=== PATIENT | female | born 1935 | race Caucasian/White ===

== ENCOUNTER → 2018-04-19 | Outpatient (CLI) | payer MEDICARE, OTHER | END | disposition home or self-care (01) | LOC: PCVCCLINIC 14:51 | PROVIDERS: ATTEND Internal Medicine Cardiovascular Disease | DX: I25.10 Atherosclerotic heart disease of native coronary artery without angina pectoris (principal); I48.91 Unspecified atrial fibrillation; J44.9 Chronic obstructive pulmonary disease, unspecified; E78.00 Pure hypercholesterolemia, unspecified; I10 Essential (primary) hypertension | CPT/HCPCS: 80061; 93005; 93280 ==

== ENCOUNTER → 2018-04-26 | Outpatient (CLI) | payer MEDICARE, OTHER ==
--- NOTE | 2018-04-26 14:31 | PCVCIMAG ---
EXAM: BILATERAL SUPERFICIAL VENOUS DUPLEX INDICATION: Leg pain and swelling. FINDINGS: Right leg: No thrombus in the common femoral, main femoral, or popliteal veins. These veins are compressible. Right Great Saphenous Vein: At the saphenofemoral junction the diameter is 4.6 mm, in the mid thigh it is absent, and in the calf it is 5.6 mm. There is significant venous insufficiency/reflux only at the level of the calf. Venous insufficiency/reflux duration is 3.6 seconds. Right Small Saphenous Vein: At the saphenopopliteal junction the diameter is 3.1 mm, and in the calf it is 3.3 mm. There is not significant venous insufficiency/reflux throughout. Venous insufficiency/reflux duration is 0 seconds. There is a cranial extension present. Left leg: No thrombus in the common femoral, main femoral, or popliteal veins. These veins are compressible. Left Great Saphenous Vein: At the saphenofemoral junction the diameter is 6.5 mm, in the mid thigh it is 4.8 mm, and in the calf it is 3.8 mm. There is significant venous insufficiency/reflux throughout. Venous insufficiency/reflux duration is 2.8 seconds. Left Small Saphenous Vein: At the saphenopopliteal junction the diameter is 3.5 mm, and in the calf it is 2.8 mm. There is not significant venous insufficiency/reflux throughout. Venous insufficiency/reflux duration is 0 seconds. There is not a cranial extension present. IMPRESSION: Right Great Saphenous Vein: Significant venous insufficiency/reflux is present only at the level of the calf. The vein throughout the level of the thigh is not visualized consistent with prior ablation procedure.. Right Small Saphenous Vein: No significant venous insufficiency/reflux is present as noted above. Left Great Saphenous Vein: Significant venous insufficiency/reflux is present as noted above. Note is made the vein is diminutive in size. Left Small Saphenous Vein: No significant venous insufficiency/reflux is present as noted above. LOC:[id number]
--- NOTE | 2018-04-26 17:06 | PCVCIMAG ---
APPROVED REPORT Study performed: 04/26/2018 12:13:13 EXAM: Comprehensive 2D, Doppler, and color-flow Echocardiogram Patient Location: Echo lab Status: routine BSA: 1.58 HR: 60 bpmBP: 140/60 mmHg Rhythm: Pacemaker Other Information Study Quality: Adequate Indications COPD Atrial Fibrillation Pacemaker CAD 2D Dimensions LVEF(%): 49.27 (>50%) IVSd: 9.60 (7-11mm)LVOT Diam: 19.76 (18-24mm) LVDd: 46.04 mm PWd: 9.69 (7-11mm)Ascending Ao: 32.48 (22-36mm) LVDs: 34.60 (25-40mm) Left Atrium: 40.85 (27-40mm) Aortic Root: 30.07 mm LV Single Plane 4CH: 52.88 % LV Single Plane 2CH: 58.64 %Hubbard's LVEF: 55.76 % Biplane EF: 56.8 % Volumes Left Atrial Volume (Systole) Single Plane 4CH: 48.80 mLSingle Plane 2CH: 62.38 mL LA ESV Index: 39.00 mL/m2 Aortic Valve AoV Peak Felix.: 1.72 m/s AO Peak Gr.: 11.89 mmHgLVOT Max P.43 mmHg LVOT Max V: 0.93 m/s MAXINE Vmax: 1.65 cm2 AI Vmax: 3.74 m/s AI [place]: 2.60 m/s2 AI PHT: 417.00 ms Mitral Valve E/A Ratio: 1.5 MV Decel. Time: 218.49 ms MV E Max Felix.: 0.78 m/s MV A Felix.: 0.53 m/s MV PHT: 63.36 ms IVRT: 124.57 ms Pulmonary Valve PV Peak Felix.: 1.06 m/sPV Peak Gr.: 4.52 mmHg Pulmonary Vein P Vein S: 0.36 m/sP Vein A: 0.27 m/s P Vein D: 0.57 m/sP Vein A Dur.: 128.0 msec P Vein S/D Ratio: 0.63 Tricuspid Valve TR Peak Felix.: 2.96 m/s TR Peak Gr.: 35.13 mmHg Left Ventricle The left ventricle is normal size. There is normal LV segmental wall motion. There is normal left ventricular wall thickness. Left ventricular systolic function is normal. The left ventricular ejection fraction is within the normal range. LVEF is 55-60%. The left ventricular diastolic function is normal. Right Ventricle The right ventricle is normal size. The right ventricular systolic function is normal. Pacemaker lead is present in the right ventricle. Atria Left atrium is mildly dilated. Right atrium is mildly dilated. Pacemaker lead is present in the right atrium. Aortic Valve The aortic valve is moderately calcified. Mild aortic regurgitation. There is no aortic valvular stenosis. Mitral Valve Anterior leaflet prolapse with mild-moderate regurgitation. Mild to moderate mitral regurgitation. No evidence of mitral valve stenosis. Tricuspid Valve The tricuspid valve is normal in structure. There is no tricuspid valve regurgitation noted. Pulmonic Valve The pulmonary valve is normal in structure. There is no pulmonic valvular regurgitation. Great Vessels The aortic root is normal in size. IVC is normal in size and collapses with >50% inspiration Pericardium There is no pericardial effusion. There is no pleural effusion. <Conclusion> The left ventricle is normal size. LVEF is 55-60%. The left ventricular diastolic function is normal. The right ventricular systolic function is normal. Left atrium is mildly dilated. Right atrium is mildly dilated. Pacemaker lead is present in the right atrium. The aortic valve is moderately calcified. Mild aortic regurgitation. Anterior leaflet prolapse with mild-moderate regurgitation. Mild to moderate mitral regurgitation. There is no tricuspid valve regurgitation noted. The aortic root is normal in size. There is no pericardial effusion.
== END | disposition home or self-care (01) ==
LOC: PCVCIMAG 13:16
PROVIDERS: ATTEND Internal Medicine Cardiovascular Disease
DX: R60.0 Localized edema (principal); M79.89 Other specified soft tissue disorders
CPT/HCPCS: 93306; 93970

== ENCOUNTER → 2018-05-17 | Outpatient (CLI) | payer MEDICARE, OTHER | END | disposition home or self-care (01) | LOC: PCVCCLINIC 14:18 | PROVIDERS: ATTEND Nuclear Medicine Nuclear Cardiology | DX: I87.2 Venous insufficiency (chronic) (peripheral) (principal); I48.0 Paroxysmal atrial fibrillation; I11.0 Hypertensive heart disease with heart failure; I50.30 Unspecified diastolic (congestive) heart failure; I25.10 Atherosclerotic heart disease of native coronary artery without angina pectoris; J44.9 Chronic obstructive pulmonary disease, unspecified; Z87.891 Personal history of nicotine dependence; Z72.89 Other problems related to lifestyle; Z79.82 Long term (current) use of aspirin | CPT/HCPCS: 93005; G0463 ==

== ENCOUNTER → 2018-05-23 | Outpatient (CLI) | payer MEDICARE, OTHER ==
[~2018-05-23] MED LIST: CLOPIDOGREL BISULFATE 75 MG TABLET ONE; DIAZEPAM 10 MG TABLET. ONE; HEPARIN SODIUM 5,000 UNIT/ML VIAL for PCVC. ONE; IOHEXOL 300 MG/ML 100ML VIAL. ONE; IV NORMAL SALINE 500ML BAG 500 ML ONE; LIDOCAINE 1% Multi-Dose 50 ML VIAL. ONE; MIDAZOLAM HCL/PF 2 MG/2 ML VIAL. ONE; VANCOMYCIN 1GM IVPB FOR OMNI 250 ML ONE; fentaNYL PF VIAL 100 MCG/2 ML VIAL ONE
--- NOTE | 2018-05-23 16:36 | PCVCINTER ---
EXAM: 1. INTRAVASCULAR ULTRASOUND OF THE INFERIOR VENA CAVA 2. INTRAVASCULAR ULTRASOUND OF THE RIGHT COMMON AND EXTERNAL ILIAC AND COMMON FEMORAL VEINS 3. INTRAVASCULAR ULTRASOUND OF THE LEFT COMMON AND EXTERNAL ILIAC AND COMMON FEMORAL VEINS 4. INFERIOR VENA CAVA AND BILATERAL ILIOFEMORAL VENOGRAPHY 5. LEFT EXTERNAL ILIAC VEIN STENT PLACEMENT INDICATION: Iliofemoral venous obstruction. Chronic Venous Insufficiency Class 4a. Leg pain and swelling. Failed conservative therapy including medical grade compression stockings for at least 3 months. Venous hypertension chronic. PROCEDURE: Procedure and risks of IVC and ileofemoral venography and intravascular ultrasound, and venous stent placement as appropriate including bleeding, infection, venous thrombosis, stent migration/thrombosis, contrast-induced nephropathy requiring dialysis, stroke, and were discussed with the patient and consent obtained. Patient was given IV antibiotics. The patient's right neck and chest was prepped and draped in the normal sterile fashion. IV conscious sedation was used throughout the procedure with appropriate monitoring. Ultrasound was used to interrogate the neck and showed the internal jugular vein to be patent. A spot ultrasound image of the internal jugular vein was saved. Under ultrasound guidance access into the right internal jugular vein was obtained and an 8F sheath was placed to the level of the lower IVC. Catheter was placed into the lower IVC and IVC cavogram performed. Catheter was placed to the level of the right common femoral vein and right iliofemoral venogram obtained. Catheter was placed to the level of the left common femoral vein and left iliofemoral venogram was obtained. The 8 [place] intravascular ultrasound catheter was then placed to the level of the right common femoral vein and intravascular ultrasound evaluation of the right common femoral, right external iliac, and right common iliac veins was accomplished in a pull-back fashion. The 8 [place] intravascular ultrasound catheter was then placed to the level of the left common femoral vein and intravascular ultrasound evaluation of the left common femoral, left external iliac, and left common iliac veins was accomplished in a pull-back fashion. Intravascular ultrasound evaluation of the inferior vena cava was then accomplished in a pullback fashion. Stent placement across the area of high-grade extrinsic compression mid left external iliac vein was performed with a 14 x 60 Smart control stent with subsequent dilatation to 12.0 mm. Follow-up venography and intravascular ultrasound of the left iliac veins was accomplished. Sheath was removed and hemostasis obtained using manual pressure. FINDINGS: IVC INTRAVASCULAR ULTRASOUND: Normal vessel: 11.3 x 18.3 mm. Area = 157.5 sq. mm. RIGHT COMMON ILIAC VEIN INTRAVASCULAR ULTRASOUND: Normal vessel: 9.3 x 10.9 mm. Area = 78.5 sq. mm. RIGHT EXTERNAL ILIAC VEIN INTRAVASCULAR ULTRASOUND: Normal vessel: 6.9 x 9.1 mm. Area = 51.4 sq. mm. RIGHT COMMON FEMORAL VEIN INTRAVASCULAR ULTRASOUND: Normal vessel: 9.6 x 11.0 mm. Area = 84.7 sq. mm. LEFT COMMON ILIAC VEIN INTRAVASCULAR ULTRASOUND: Normal vessel: 9.3 x 11.5 mm. Area = 83.4 sq. mm. LEFT EXTERNAL ILIAC VEIN INTRAVASCULAR ULTRASOUND: Normal vessel: 7.9 x 9.7 mm. Area = 64.6 sq. mm. Minimum vessel diameter: 2.3 x 4.8 mm. Area = 8.5 sq. mm. Post-Intervention diameter: 10.4 x 11.6 mm. Area = 99.2 sq. mm. LEFT COMMON FEMORAL VEIN INTRAVASCULAR ULTRASOUND: Normal vessel: 9.4 x 10.4 mm. Area = 76.7 sq. mm. VENOGRAPHY: INFERIOR VENA CAVA: Vessel is patent without significant stenosis, scarring, or extrinsic compression. RIGHT COMMON ILIAC VEIN: Vessel is patent without significant stenosis, scarring, or extrinsic compression. RIGHT EXTERNAL ILIAC VEIN: Vessel is patent without significant stenosis, scarring, or extrinsic compression. RIGHT COMMON FEMORAL VEIN: Vessel is patent without significant stenosis, scarring, or extrinsic compression. LEFT COMMON ILIAC VEIN: Vessel is patent without significant stenosis, scarring, or extrinsic compression. LEFT EXTERNAL ILIAC VEIN: High-grade extrinsic compression mid vessel resulting in 85% area reduction. LEFT COMMON FEMORAL VEIN: Vessel is patent without significant stenosis, scarring, or extrinsic compression. IMPRESSION: High-grade extrinsic compression mid left external iliac vein was treated with stent placement with good patency restored. No other areas of high-grade venous stenosis are identified. The right external iliac vein is mildly decreased in size but this is not felt to be flow-limiting. The inferior vena cava is patent. LOC:[id number]
== END | disposition home or self-care (01) ==
LOC: PCVCINTER 15:58
PROVIDERS: ATTEND Nuclear Medicine Nuclear Cardiology
DX: I87.2 Venous insufficiency (chronic) (peripheral) (principal); I87.1 Compression of vein; I87.309 Chronic venous hypertension (idiopathic) without complications of unspecified lower extremity; F41.9 Anxiety disorder, unspecified; I48.0 Paroxysmal atrial fibrillation; I25.10 Atherosclerotic heart disease of native coronary artery without angina pectoris; Z95.0 Presence of cardiac pacemaker; J44.9 Chronic obstructive pulmonary disease, unspecified; E78.5 Hyperlipidemia, unspecified; E03.9 Hypothyroidism, unspecified; G62.9 Polyneuropathy, unspecified; G47.33 Obstructive sleep apnea (adult) (pediatric); I11.0 Hypertensive heart disease with heart failure; I50.32 Chronic diastolic (congestive) heart failure; M81.0 Age-related osteoporosis without current pathological fracture; Z86.711 Personal history of pulmonary embolism; Z90.13 Acquired absence of bilateral breasts and nipples; Z91.048 Other nonmedicinal substance allergy status; Z95.5 Presence of coronary angioplasty implant and graft; Z87.891 Personal history of nicotine dependence; Z72.89 Other problems related to lifestyle; Z88.0 Allergy status to penicillin; Z88.2 Allergy status to sulfonamides; Z88.8 Allergy status to other drugs, medicaments and biological substances
CPT/HCPCS: 36012; 37238; 37252; 37253; 75822; 75825; 76937; 99152; 99153; C1725; C1751; C1753; C1769; C1876; C1894; J1644; J2250; J3010; J3370; J7040; Q9967

== ENCOUNTER → 2018-09-12 | Outpatient (CLI) | payer MEDICARE, OTHER ==
--- NOTE | 2018-09-12 11:46 | PCVCIMAG ---
EXAM: VENOUS DUPLEX INFERIOR VENA CAVA AND BILATERAL ILIAC VEINS INDICATION: Leg pain and swelling. FINDINGS: IVC: IVC is patent where visualized. Right iliac vein: Right common and external iliac veins appear patent without evidence of thrombus. Left iliac veins: Left common and external iliac veins appear patent without evidence of thrombus. Previous stent mid and upper external iliac vein obtaining satisfactory patency. IMPRESSION: Inferior vena cava and bilateral iliac veins appear patent including previous left external iliac vein stent. Please see lower extremity venous duplex report from today. LOC:[id number]
--- NOTE | 2018-09-12 12:37 | PCVCIMAG ---
EXAM: VENOUS DUPLEX BOTH LOWER EXTREMITIES INDICATION: Leg pain and swelling. FINDINGS: Right leg: Common femoral vein is patent. Moderate nonocclusive thrombus throughout the main femoral vein. 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 Profunda femoral vein is patent. Moderate nonocclusive thrombus throughout the popliteal vein with mild nonocclusive thrombus upper posterior tibial and peroneal veins. Left leg: Moderate nonocclusive thrombus has developed in the common femoral vein and upper main femoral vein. The mid and lower main femoral vein, popliteal vein, and calf veins are patent. IMPRESSION: Interval development of bilateral lower extremity deep venous thrombosis right greater than left as detailed above. LOC:[id number]
== END | disposition home or self-care (01) ==
LOC: PCVCIMAG 08:52
PROVIDERS: ATTEND Nuclear Medicine Nuclear Cardiology
DX: I87.2 Venous insufficiency (chronic) (peripheral) (principal); I82.413 Acute embolism and thrombosis of femoral vein, bilateral; I87.1 Compression of vein; I48.91 Unspecified atrial fibrillation; I25.10 Atherosclerotic heart disease of native coronary artery without angina pectoris; I10 Essential (primary) hypertension; J44.9 Chronic obstructive pulmonary disease, unspecified; M79.89 Other specified soft tissue disorders; G47.33 Obstructive sleep apnea (adult) (pediatric); M81.0 Age-related osteoporosis without current pathological fracture; Z95.0 Presence of cardiac pacemaker; Z87.891 Personal history of nicotine dependence
CPT/HCPCS: 93970; 93976; G0463

== ENCOUNTER → 2018-09-28 | Outpatient (CLI) | payer MEDICARE, OTHER ==
--- NOTE | 2018-09-28 16:47 | PCVCIMAG ---
APPROVED REPORT Study performed: 09/28/2018 13:25:05 EXAM: Comprehensive 2D, Doppler, and color-flow Echocardiogram Patient Location: Echo lab Status: routine BSA: 1.59 HR: 60 bpmBP: 120/72 mmHg Rhythm: NSR Other Information Study Quality: Good Risk Factors: Cardiac Risk Factors: HTN Indications COPD Mitral Valve Prolapse Atrial Fibrillation Pacemaker CAD 2D Dimensions IVSd: 9.78 (7-11mm)LVOT Diam: 18.00 (18-24mm) LVDd: 42.63 mm PWd: 11.21 (7-11mm)Ascending Ao: 30.76 (22-36mm) LVDs: 31.70 (25-40mm) Left Atrium: 44.79 (27-40mm) Aortic Root: 29.25 mm LV Single Plane 4CH: 60.94 % LV Single Plane 2CH: 54.79 % Biplane EF: 57.5 % Volumes Left Atrial Volume (Systole) Single Plane 4CH: 55.93 mLSingle Plane 2CH: 36.84 mL LA ESV Index: 29.00 mL/m2 Aortic Valve AoV Peak Felix.: 1.55 m/s AO Peak Gr.: 9.62 mmHgLVOT Max P.63 mmHg LVOT Max V: 0.81 m/s MAXINE Vmax: 1.36 cm2 AI Vmax: 2.88 m/s AI [place]: 1.43 m/s2 AI PHT: 585.32 ms Mitral Valve E/A Ratio: 0.8 MV Decel. Time: 362.73 ms MV E Max Felix.: 0.61 m/s MV A Felix.: 0.79 m/s IVRT: 58.82 ms TDI E/Lateral E': 7.63E/Medial E': 12.20 Medial E' Felix.: 0.05 m/s Lateral E' Felix.: 0.08 m/s Pulmonary Vein P Vein S: 0.42 m/sP Vein A: 0.20 m/s P Vein D: 0.29 m/sP Vein A Dur.: 117.6 msec P Vein S/D Ratio: 1.45 Tricuspid Valve TR Peak Felix.: 2.46 m/sRAP Estimate: 7.00 mmHg TR Peak Gr.: 24.28 mmHg PA Pressure: 31.00 mmHg Left Ventricle The left ventricle is normal size. There is normal LV segmental wall motion. There is normal left ventricular wall thickness. Left ventricular systolic function is normal. The left ventricular ejection fraction is within the normal range. LVEF is 55-60%. Mild diastolic dysfunction is present (impaired relaxation pattern). Right Ventricle The right ventricle is normal size. The right ventricular systolic function is normal. Pacemaker lead is present in the right ventricle. Atria Left atrium is borderline dilated. Right atrium is borderline dilated. Pacemaker lead is present in the right atrium. Aortic Valve Aortic valve is moderately calcified. Mild aortic regurgitation. There is no aortic valvular stenosis. Mitral Valve The mitral valve is normal in structure. Mild to moderate mitral regurgitation. No evidence of mitral valve stenosis. There is prolapse of the anterior mitral valve leaflet. Tricuspid Valve The tricuspid valve is normal in structure. Mild to moderate tricuspid regurgitation. Pulmonary artery pressure is 31 mmHg. Pulmonic Valve The pulmonary valve is normal in structure. Trace to mild pulmonic regurgitation. Great Vessels The aortic root is normal in size. IVC is normal in size and collapses >50% with inspiration. Pericardium There is no pericardial effusion. <Conclusion> The left ventricle is normal size. LVEF is 55-60%. Mild diastolic dysfunction is present (impaired relaxation pattern). The right ventricle is normal size. Left atrium is borderline dilated. Right atrium is borderline dilated. Pacemaker lead is present in the right atrium. Pacemaker lead is present in the right ventricle. Aortic valve is moderately calcified. Mild aortic regurgitation. Mild to moderate mitral regurgitation. Mild to moderate tricuspid regurgitation. Pulmonary artery pressure is 31 mmHg. The aortic root is normal in size. There is no pericardial effusion.
== END | disposition home or self-care (01) ==
LOC: PCVCIMAG 13:16
PROVIDERS: ATTEND Internal Medicine Cardiovascular Disease
DX: I08.3 Combined rheumatic disorders of mitral, aortic and tricuspid valves (principal); J44.9 Chronic obstructive pulmonary disease, unspecified; I48.91 Unspecified atrial fibrillation; I25.10 Atherosclerotic heart disease of native coronary artery without angina pectoris; I10 Essential (primary) hypertension
CPT/HCPCS: 93306

== ENCOUNTER → 2019-01-03 | Outpatient (CLI) | payer OTHER ==
--- NOTE | 2019-01-03 09:10 | PCVCIMAG ---
EXAM: VENOUS DUPLEX BOTH LOWER EXTREMITIES INDICATION: Leg pain and swelling. FINDINGS: Right leg: No thrombus in the common femoral, main femoral, or popliteal veins. These veins are compressible with phasic flow. Calf veins are unremarkable where seen. Left leg: No thrombus in the common femoral, main femoral, or popliteal veins. These veins are compressible with phasic flow. Calf veins are unremarkable where seen. IMPRESSION: No evidence of deep venous thrombosis in either lower extremity as detailed above. LOC:[id number]
== END | disposition home or self-care (01) ==
LOC: PCVCIMAG 08:00
PROVIDERS: ATTEND Internal Medicine Cardiovascular Disease
DX: I82.493 Acute embolism and thrombosis of other specified deep vein of lower extremity, bilateral (principal); I82.413 Acute embolism and thrombosis of femoral vein, bilateral; M79.604 Pain in right leg; M79.605 Pain in left leg
CPT/HCPCS: 93970

== ENCOUNTER → 2019-04-06 | Outpatient (CLI) | payer OTHER ==
--- NOTE | 2019-04-06 17:53 | PCVCIMAG ---
EXAM: VENOUS DUPLEX LEFT LEG INDICATION: Leg pain and swelling. FINDINGS: Left leg: No thrombus in the common femoral, main femoral, or popliteal veins. These veins are compressible with phasic flow. Calf veins are unremarkable where seen. IMPRESSION: No evidence of deep venous thrombosis in the left lower extremity as detailed above. Left common and external iliac veins are patent as is the IVC were visualized. Previous left external iliac vein stent maintaining satisfactory patency. If symptoms persist follow-up with intervascular ultrasound evaluation is suggested. LOC:OFFICE
== END | disposition home or self-care (01) ==
LOC: PCVCIMAG 10:51
PROVIDERS: ATTEND Internal Medicine Cardiovascular Disease
DX: M79.89 Other specified soft tissue disorders (principal); M79.605 Pain in left leg
CPT/HCPCS: 93971

== ENCOUNTER → 2019-04-30 | Outpatient (CLI) | payer OTHER ==
--- NOTE | 2019-04-30 16:29 | PCVCIMAG ---
EXAM: VENOUS DUPLEX LEFT LEG INDICATION: Leg pain and swelling. FINDINGS: Left leg: No thrombus in the common femoral, main femoral, or popliteal veins. These veins are compressible with phasic flow. Calf veins are unremarkable where seen. IMPRESSION: No evidence of deep venous thrombosis in the left lower extremity as detailed above. The left iliac veins also appear patent. LOC:[id number]
== END | disposition home or self-care (01) ==
LOC: PCVCIMAG 15:22
PROVIDERS: ATTEND Nuclear Medicine Nuclear Cardiology
DX: M79.604 Pain in right leg (principal); M79.89 Other specified soft tissue disorders
CPT/HCPCS: 93971

== ENCOUNTER → 2019-07-18 | Outpatient (CLI) | payer OTHER | END | disposition home or self-care (01) | LOC: PCVCCLINIC 10:00 | PROVIDERS: ATTEND Internal Medicine Cardiovascular Disease | DX: I48.0 Paroxysmal atrial fibrillation (principal); E78.5 Hyperlipidemia, unspecified; I25.10 Atherosclerotic heart disease of native coronary artery without angina pectoris; J44.9 Chronic obstructive pulmonary disease, unspecified; J45.909 Unspecified asthma, uncomplicated; E03.9 Hypothyroidism, unspecified; G47.33 Obstructive sleep apnea (adult) (pediatric); M81.0 Age-related osteoporosis without current pathological fracture; Z90.13 Acquired absence of bilateral breasts and nipples; Z95.0 Presence of cardiac pacemaker; Z87.891 Personal history of nicotine dependence; Z91.048 Other nonmedicinal substance allergy status; Z88.0 Allergy status to penicillin; Z91.040 Latex allergy status | CPT/HCPCS: 36415; 80061; 93005; 93280; G0463 ==